=== PATIENT | female | born 1980 | race African-American/Black ===

== ENCOUNTER 2025-04-08 20:35 | Emergency (ER) | payer SELFPAY ==
[~2025-04-08] VITALS: Ht 165.1 cm; Wt 75.0 kg
[2025-04-08 20:50] VITALS: O2SAT 97
[2025-04-08 21:44] LABS: BASOPHILS % 0.5 % (0.0-2.0); EOSINOPHILS % 2.1 % (0.0-5.0); HEMATOCRIT. 39.1 % (36.0-48.0); HEMOGLOBIN. 12.9 g/dL (12.0-16.0); LYMPHOCYTES % 34.1 % (20.0-50.0); MEAN PLATELET VOLUME 8.3 fl (7.4-10.4); MONOCYTES % 7.5 % (2.0-8.0); NEUTROPHILS % 55.8 % (40.0-76.0); PLATELET 326 x1000/uL (130-400); RED BLOOD CELL COUNT 4.63 mill/uL (4.2-5.4); RED CELL DISTRIBUTION WIDTH 13.9 % (11.6-14.6)
[2025-04-08 22:00] LABS: TROPONIN I HIGH SENSITIVITY < 4 ng/L (3.0-34)
[2025-04-08 22:47] VITALS: BP 141/77; PULSE 86; RESP 18; TEMP 37; O2SAT 99
[2025-04-08 23:36] LABS: CREATININE 0.8 mg/dL (0.6-1.0); UREA NITROGEN BLOOD 10 mg/dL (9-23)
== END 2025-04-08 22:50 | disposition home or self-care (01) ==
LOC: ER 20:35
DX: R07.89 Other chest pain (principal); F17.210 Nicotine dependence, cigarettes, uncomplicated
CPT/HCPCS: 36415; 71045; 80048; 84484; 85025; 93005; 99285